=== PATIENT | male | born 1995 | race Two or more races ===

== ENCOUNTER 2019-02-10 19:59 | Emergency (ER) | payer OTHER ==
[~2019-02-10] VITALS: Ht 180.3 cm; Wt 94.8 kg
[2019-02-10 21:42] VITALS: BP 139/88
== END 2019-02-10 22:14 | disposition home or self-care (01) ==
LOC: ER 20:06
DX: S20.212A Contusion of left front wall of thorax, initial encounter (principal); W21.89XA Striking against or struck by other sports equipment, initial encounter; Y93.72 Activity, wrestling; Y92.89 Other specified places as the place of occurrence of the external cause; Y99.8 Other external cause status
CPT/HCPCS: 36415; 71045; 84484; 93005